=== PATIENT | female | born 1985 | race Two or more races ===

== ENCOUNTER 2021-11-28 16:16 | Emergency (ER) | payer OTHER ==
[~2021-11-28] VITALS: Ht 160 cm; Wt 68.0 kg
== END 2021-11-28 19:41 | disposition home or self-care (01) ==
LOC: ER 16:16
DX: S89.81XA Other specified injuries of right lower leg, initial encounter (principal); Y93.79 Activity, other specified sports and athletics; Y93.89 Activity, other specified; Y92.89 Other specified places as the place of occurrence of the external cause; Y99.1 Military activity